=== PATIENT | female | born 1975 | race Caucasian/White ===

== ENCOUNTER 2016-08-20 08:19 | Day surgery (SDC) | payer MEDICAID ==
[2016-08-19 10:18] VITALS: BMI 21.1
[~2016-08-20 08:19] MED LIST: LACTATED RINGERS 1,000 ML IV SCH
[2016-08-20 09:33] VITALS: RESP 16; TEMP 97.1
[2016-08-20] MEDS ORDERED: LIDOCAINE 1% INJ 10MG/ML (20 ML MDV) ONE (09:37)
[2016-08-20] MEDS ORDERED: GLYCOPYRROLATE 0.2 MG/ML 2 ML VIAL ONE (09:37)
[2016-08-20] MEDS ORDERED: PROPOFOL 10 MG/ML 20 ML VIAL IV ONE (09:37)
--- NOTE | 2016-08-20 09:57 | P.PCN ---
Date of Procedure: 08/20/16 Procedure(s) Performed: BRIEF HISTORY: Patient is a 40-year-old pleasant white female, scheduled for an elective colonoscopy as a part of evaluation of abdominal pain, intermittent diarrhea and prior history of colon polyps. She had a colonoscopy about 8 years ago and was noted to have a repeat colonoscopy in 5 years. PROCEDURE PERFORMED: Colonoscopy. PREOPERATIVE DIAGNOSIS: History of colon polyps, intermittent abdominal pain and diarrhea. IV sedation per Anesthesia. PROCEDURE: After informed consent was obtained, the patient, was brought into the endoscopy unit. IV conscious sedation was administered by Anesthesia under continuous monitoring. Digital rectal examination was normal. Initially the Olympus CF-160 flexible video colonoscope was then inserted in the rectum, gradually advanced into the cecum without any difficulty. Careful examination was performed as the scope was gradually being withdrawn. Ileocecal valve and the appendiceal orifice were visualized and appeared normal. Prep was excellent. Mucosa of the cecum, ascending colon, transverse colon, descending colon, sigmoid colon, and rectum appeared normal. Retroflexion was performed in the rectum and no lesions were seen. The patient tolerated the procedure well. IMPRESSION: Normal-appearing colon from rectum to cecum with no evidence of colitis or colorectal neoplasia. RECOMMENDATIONS: Findings of this examination were discussed with the patient as well as a family. She was advised to have a repeat screening colonoscopy in 10 years.
[2016-08-20 10:23] VITALS: BP 103/66; PULSE 88
== END 2016-08-20 10:51 | disposition home or self-care (01) ==
LOC: ORWHC2ENDO 08:19
PROVIDERS: ATTEND Internal Medicine Gastroenterology
DX: R19.7 Diarrhea, unspecified (principal); Z86.010 Personal history of colon polyps; R10.9 Unspecified abdominal pain; Z79.899 Other long term (current) drug therapy; Z88.2 Allergy status to sulfonamides
CPT/HCPCS: 81025; 45378; J2001; J2704

== ENCOUNTER → 2017-06-22 | Outpatient (CLI) | payer MEDICAID ==
--- NOTE | 2017-06-22 13:35 | US ---
EXAMINATION TYPE: US pelvis complete transvag DATE OF EXAM: 06/22/2017 COMPARISON: Pelvic ultrasound 08/20/2015 CLINICAL HISTORY: R10.2 Pelvic pain. RLQ ache that comes and goes for a while, h/o ovarian cysts TECHNIQUE: TA and TV, endovaginal scanning performed for better evaluation of the uterus and adnexa Date of LMP: 06/14/2017 EXAM MEASUREMENTS: Uterus: 8.0 x 5.1 x 4.6 cm Endometrial Stripe: 0.8 cm Right Ovary: 2.8 x 2.4 x 1.5 cm Left Ovary: 2.0 x 0.9 x 1.0 cm 1. Uterus: Retroverted wnl 2. Endometrium: wnl 3. Right Ovary: multiple anechoic areas seen, largest = 1.4cm, dominate follicle versus involuting c yst 4. Left Ovary: wnl 5. Bilateral Adnexa: free fluid seen within bilateral adnexa, greater amount on the left 6. Posterior cul-de-sac: wnl IMPRESSION: Free fluid is noted in the adnexal regions greater on the left, there is a noted follicle on the right
== END | disposition home or self-care (01) ==
LOC: RADUSWWP 12:05
PROVIDERS: ATTEND Obstetrics & Gynecology
DX: R93.8 Abnormal findings on diagnostic imaging of other specified body structures (principal); R10.2 Pelvic and perineal pain
CPT/HCPCS: 76830; 76856

== ENCOUNTER → 2017-07-28 | Outpatient (CLI) | payer MEDICAID ==
--- NOTE | 2017-08-02 07:03 | MM ---
Reason for exam: screening (asymptomatic). Last mammogram was performed 1 year and 1 month ago. Physical Findings: A clinical breast exam by your physician is recommended on an annual basis and results should be correlated with mammographic findings. MG 3D Screening Mammo W/Cad Bilateral CC and MLO view(s) were taken. Prior study comparison: July 05, 2016, bilateral MG 3d screening mammo w/cad. The breast tissue is extremely dense which could obscure a lesion on mammography. Finding: There is a high density, indistinct oval mass in the posterior position of the right breast in the MLO position. New finding since July 05, 2016. ASSESSMENT: Incomplete: need additional imaging evaluation, BI-RAD 0 RECOMMENDATION: Special view mammogram of the right breast. If lesion persists on supplemental views, image directed ultrasound is recommended. [facility] will attempt to contact patient to return for supplemental views and ultrasound if indicated.
== END | disposition home or self-care (01) ==
LOC: RADMAMWWP 15:03
PROVIDERS: ATTEND Obstetrics & Gynecology
DX: Z12.31 Encounter for screening mammogram for malignant neoplasm of breast (principal)
CPT/HCPCS: 77063; G0202

== ENCOUNTER 2017-08-26 22:28 | Emergency (ER) | payer MEDICAID ==
[2017-08-26 22:35] VITALS: RESP 18
[2017-08-26] MEDS ORDERED: LORazepam 1 MG TAB PO STA (22:45)
--- NOTE | 2017-08-26 22:48 | ED ---
General Adult HPI - General Chief complaint: Shortness of Breath Stated complaint: Anxiety Time Seen by Provider: 08/26/17 22:30 Source: EMS, RN notes reviewed Mode of arrival: EMS Limitations: no limitations - History of Present Illness Initial comments: This is a 41-year-old female has past medical history significant for some mild anxiety. Patient states tonight she suddenly felt as though she couldn't catch her breath and she began to breathing real fast and noticed tingling all over her body and felt as though she could no longer move her hands. Patient states she had a little sharp left-sided chest pain and because she's in her she started worrying that she might be having a pulmonary embolism. Patient states earlier in the day she remembers she had some calf pain occasionally currently has no calf pain. Patient denies any leg swelling or any pain on palpation. Patient denies any fever chills or cough. Patient denies any abdominal pain. Patient denies nausea vomiting diarrhea. Patient states she did look at her pulse when this was occurring and she believes it was up to about 150 beats a minute. Patient denies any control patient denies any traveling or long trips. Patient denies any smoking history - Related Data Home Medications Medication Instructions Recorded Confirmed Clobetasol Propionate [Temovate] 1 applic TOPICAL DAILY PRN 08/19/16 08/26/17 cycloSPORINE [Restasis] 1 applicator BOTH EYES BID 08/26/17 08/26/17 Previous Rx's Medication Instructions Recorded ALPRAZolam [Xanax] 0.5 mg PO BID PRN #10 tablet 08/27/17 Allergies Allergy/AdvReac Type Severity Reaction Status Date / Time Sulfa (Sulfonamide Allergy Rash/Hives Verified 08/26/17 22:55 Antibiotics) Review of Systems ROS Statement: Those systems with pertinent positive or pertinent negative responses have been documented in the HPI. ROS Other: All systems not noted in ROS Statement are negative. Past Medical History Past Medical History: GERD/Reflux Additional Past Medical History / Comment(s): IBS History of Any Multi-Drug Resistant Organisms: None Reported Additional Past Surgical History / Comment(s): D&C, COLONOSCOPY Past Anesthesia/Blood Transfusion Reactions: Postoperative Nausea & Vomiting ( PONV) Past Psychological History: Anxiety Smoking Status: Never smoker Past Alcohol Use History: Occasional Past Drug Use History: None Reported - Past Family History Father Family Medical History: Cancer Additional Family Medical History / Comment(s): THROAT AND LUNG CANCER General Exam - General Exam Comments Initial Comments: GENERAL: Patient is well-developed and well-nourished. Patient is nontoxic and well- hydrated and is in mild distress. ENT: Neck is soft and supple. No significant lymphadenopathy is noted. Oropharynx is clear. Moist mucous membranes. Neck has full range of motion without eliciting any pain. EYES: The sclera were anicteric and conjunctiva were pink and moist. Extraocular movements were intact and pupils were equal round and reactive to light. Eyelids were unremarkable. PULMONARY: Unlabored respirations. Good breath sounds bilaterally. No audible rales rhonchi or wheezing was noted. CARDIOVASCULAR: There is a regular rate and rhythm without any murmurs gallops or rubs. ABDOMEN: Soft and nontender with normal bowel sounds. No palpable organomegaly was noted. SKIN: Skin is clear with no lesions or rashes and otherwise unremarkable. NEUROLOGIC: Patient is alert and oriented x3. Cranial nerves II through XII are grossly intact. Motor and sensory are also intact. Normal speech, volume and content. Symmetrical smile. MUSCULOSKELETAL: Normal extremities with adequate strength and full range of motion. LYMPHATICS: No significant lymphadenopathy is noted PSYCHIATRIC: Normal psychiatric evaluation. Normal interpersonal interactions appears functionally intact in deals appropriately with others. No signs of depression. No signs of anxiety. Limitations: no limitations Course Vital Signs 08/26/17 08/26/17 22:31 23:23 Temperature 97.7 F Pulse Rate 95 96 Respiratory 18 18 Rate Blood Pressure 125/58 121/65 O2 Sat by Pulse 100 99 Oximetry Medical Decision Making - Medical Decision Making EKG shows sinus rhythm at 93 bpm DE interval is 224 QRS is 66 QT interval 346 QTC is 4:30. Patient's EKG shows no ST segment elevation or depression or T wave abnormalities are noted. Patient does have Q waves in V1 through the 3. Patient is asymptomatic at this time. Patient is oxygenating 99-100% on room air and in no respiratory distress. - Lab Data Result diagrams: 08/26/17 23:20 08/26/17 23:20 Lab Results 08/26/17 08/26/17 08/26/17 Range/Units 23:20 23:20 23:20 WBC 7.4 (3.8-10.6) k/uL RBC 5.26 (3.80-5.40) m/uL Hgb 15.0 (11.4-16.0) gm/dL Hct 43.7 (34.0-46.0) % MCV 83.1 (80.0-100.0) fL MCH 28.5 (25.0-35.0) pg MCHC 34.3 (31.0-37.0) g/dL RDW 15.1 (11.5-15.5) % Plt Count 234 (150-450) k/uL Neutrophils % 66 % Lymphocytes % 22 % Monocytes % 8 % Eosinophils % 1 % Basophils % 1 % Neutrophils # 4.9 (1.3-7.7) k/uL Lymphocytes # 1.7 (1.0-4.8) k/uL Monocytes # 0.6 (0-1.0) k/uL Eosinophils # 0.1 (0-0.7) k/uL Basophils # 0.0 (0-0.2) k/uL D-Dimer (<0.60) mg/L FEU Sodium 142 (137-145) mmol/L Potassium 3.7 (3.5-5.1) mmol/L Chloride 106 (98-107) mmol/L Carbon Dioxide 26 (22-30) mmol/L Anion Gap 10 mmol/L BUN 13 (7-17) mg/dL Creatinine 0.70 (0.52-1.04) mg/dL Est GFR (MDRD) Af Amer >60 (>60 ml/min/1.73 sqM) Est GFR (MDRD) Non-Af >60 (>60 ml/min/1.73 sqM) Glucose 115 H (74-99) mg/dL Calcium 10.4 H (8.4-10.2) mg/dL Total Bilirubin 0.4 (0.2-1.3) mg/dL AST 21 (14-36) U/L ALT 26 (9-52) U/L Alkaline Phosphatase 63 (38-126) U/L Total Creatine Kinase 25 L (30-135) U/L CK-MB (CK-2) <0.2 (0.0-2.4) ng/mL CK-MB (CK-2) Rel Index Troponin I <0.012 (0.000-0.034) ng/mL Total Protein 7.2 (6.3-8.2) g/dL Albumin 4.4 (3.5-5.0) g/dL 08/26/17 Range/Units 23:20 WBC (3.8-10.6) k/uL RBC (3.80-5.40) m/uL Hgb (11.4-16.0) gm/dL Hct (34.0-46.0) % MCV (80.0-100.0) fL MCH (25.0-35.0) pg MCHC (31.0-37.0) g/dL RDW (11.5-15.5) % Plt Count (150-450) k/uL Neutrophils % % Lymphocytes % % Monocytes % % Eosinophils % % Basophils % % Neutrophils # (1.3-7.7) k/uL Lymphocytes # (1.0-4.8) k/uL Monocytes # (0-1.0) k/uL Eosinophils # (0-0.7) k/uL Basophils # (0-0.2) k/uL D-Dimer 0.23 (<0.60) mg/L FEU Sodium (137-145) mmol/L Potassium (3.5-5.1) mmol/L Chloride (98-107) mmol/L Carbon Dioxide (22-30) mmol/L Anion Gap mmol/L BUN (7-17) mg/dL Creatinine (0.52-1.04) mg/dL Est GFR (MDRD) Af Amer (>60 ml/min/1.73 sqM) Est GFR (MDRD) Non-Af (>60 ml/min/1.73 sqM) Glucose (74-99) mg/dL Calcium (8.4-10.2) mg/dL Total Bilirubin (0.2-1.3) mg/dL AST (14-36) U/L ALT (9-52) U/L Alkaline Phosphatase (38-126) U/L Total Creatine Kinase (30-135) U/L CK-MB (CK-2) (0.0-2.4) ng/mL CK-MB (CK-2) Rel Index Troponin I (0.000-0.034) ng/mL Total Protein (6.3-8.2) g/dL Albumin (3.5-5.0) g/dL Disposition Clinical Impression: Panic attack Disposition: HOME SELF-CARE Condition: Good Instructions: Panic Attack (ED) Prescriptions: ALPRAZolam [Xanax] 0.5 mg PO BID PRN #10 tablet PRN Reason: Anxiety Referrals: Malick Noyola III, MD [Primary Care Provider] - 1-2 days Time of Disposition: 00:27
[2017-08-26 23:24] VITALS: BP 121/65; PULSE 96
[2017-08-26 23:32] LABS: Basophils % (A) 1 %; Eosinophils # (A) 0.1 k/uL (0-0.7); Eosinophils % (A) 1 %; HCT 43.7 % (34.0-46.0); Lymphocytes # (A) 1.7 k/uL (1.0-4.8); Lymphocytes % (A) 22 %; MCH 28.5 pg (25.0-35.0); MCHC 34.3 g/dL (31.0-37.0); MCV 83.1 fL (80.0-100.0); Mean Platelet Volume 7.6; Monocytes # (A) 0.6 k/uL (0-1.0); Monocytes % (A) 8 %; Neutrophils # (A) 4.9 k/uL (1.3-7.7); Neutrophils % (A) 66 %; Platelet Count 234 k/uL (150-450); RBC 5.26 m/uL (3.80-5.40); RDW 15.1 % (11.5-15.5); WBC 7.4 k/uL (3.8-10.6)
[2017-08-26 23:47] LABS: ALT 26 U/L (9-52); AST 21 U/L (14-36); Albumin 4.4 g/dL (3.5-5.0); Alkaline Phosphatase 63 U/L (38-126); Anion Gap 10 mmol/L; Blood Urea Nitrogen 13 mg/dL (7-17); Calcium 10.4 mg/dL (8.4-10.2); Carbon Dioxide 26 mmol/L (22-30); Chloride 106 mmol/L (98-107); Glucose 115 mg/dL (74-99); Potassium 3.7 mmol/L (3.5-5.1); Sodium 142 mmol/L (137-145); Total Bilirubin 0.4 mg/dL (0.2-1.3); Total Protein 7.2 g/dL (6.3-8.2)
[2017-08-26 23:53] LABS: Creatine Kinase 25 U/L (30-135)
--- NOTE | 2017-08-26 23:53 | XR ---
EXAMINATION TYPE: XR chest 2V DATE OF EXAM: 08/26/2017 COMPARISON: NONE HISTORY: Difficulty breathing TECHNIQUE: Frontal and lateral views of the chest are obtained. FINDINGS: Heart and mediastinum are normal. Lungs are clear. Diaphragm is normal. Bony thorax is int act. There are chest leads. IMPRESSION: Normal chest
[2017-08-27 00:06] LABS: Creatine Kinase MB <0.2 ng/mL (0.0-2.4); Troponin I <0.012 ng/mL (0.000-0.034)
[2017-08-27 00:35] VITALS: TEMP 97.8
== END 2017-08-27 00:35 | disposition home or self-care (01) ==
LOC: EC 22:28
DX: F41.0 Panic disorder [episodic paroxysmal anxiety] (principal); R06.02 Shortness of breath; R07.9 Chest pain, unspecified; Z79.899 Other long term (current) drug therapy; Z88.2 Allergy status to sulfonamides
CPT/HCPCS: 36415; 71046; 80053; 82550; 82553; 84484; 85025; 85379; 93005; 99285

== ENCOUNTER → 2017-08-29 | Outpatient (CLI) | payer MEDICAID ==
--- NOTE | 2017-08-29 15:24 | CT ---
EXAMINATION TYPE: CT angio chest DATE OF EXAM: 08/29/2017 COMPARISON: NONE HISTORY: 41-year-old female SOB x4 days. Tachycardia. TECHNIQUE: Contiguous axial scanning of the chest performed with IV Contrast, patient injected with 8 0 mL of Omnipaque 350. Coronal/sagittal MIP reconstructions performed. CT DLP: 128.7 mGycm Automated exposure control for dose reduction was used. FINDINGS: Heart is normal size without pericardial effusion. Aorta normal caliber with bowing configuration to the aortic arch. Satisfactory opacification of the pulmonary arterial system with a some respiratory motion artifact e specially in the lower lungs but no evidence for pulmonary embolus. No thoracic lymphadenopathy. Evaluation of the lungs shows no consolidation or pleural effusion. Visualized upper abdomen shows surgical 7 mm nodularity of the left adrenal gland. Tiny underlying ad renal adenoma is possible. Bones: No osseous destructive process. IMPRESSION: 1. SOME MILD RESPIRATORY MOTION ARTIFACTS. NO EVIDENCE FOR PULMONARY EMBOLUS. 2. NO ACUTE PULMONARY PROCESS. 3. POSSIBLE TINY 7 MM LEFT ADRENAL ADENOMA.
== END | disposition home or self-care (01) ==
LOC: RADCTMAIN 14:50
PROVIDERS: ATTEND Family Medicine
DX: R00.0 Tachycardia, unspecified (principal); R06.02 Shortness of breath
CPT/HCPCS: 71275; Q9967

== ENCOUNTER → 2017-08-30 | Outpatient (CLI) | payer MEDICAID ==
--- NOTE | 2017-08-30 13:08 | US ---
EXAMINATION TYPE: US venous doppler duplex LE LT DATE OF EXAM: 08/30/2017 12:52 PM COMPARISON: NONE CLINICAL HISTORY: Left Lower Ext, M79.605 pain. SIDE PERFORMED: Left TECHNIQUE: The lower extremity deep venous system is examined utilizing real time linear array sonog anjelica with graded compression, doppler sonography and color-flow sonography. VESSELS IMAGED: External Iliac Vein (EIV) Common Femoral Vein Deep Femoral Vein Greater Saphenous Vein * Femoral Vein Popliteal Vein Proximal Calf Veins (* superficial vessels) Grayscale, color doppler, spectral doppler imaging performed of the deep veins of the lower extremity . There is normal flow, compressibility, vascular waveforms. IMPRESSION: Left Leg: Negative for DVT
== END | disposition home or self-care (01) ==
LOC: RADUSWWP 12:07
PROVIDERS: ATTEND Family Medicine
DX: I83.10 Varicose veins of unspecified lower extremity with inflammation (principal)

== ENCOUNTER 2017-09-09 23:02 | Emergency (ER) | payer MEDICAID ==
[2017-09-10 00:20] VITALS: TEMP 97.7
--- NOTE | 2017-09-10 00:42 | ED ---
Arrhythmia/Palpitations HPI - General Chief Complaint: Arrhythmia/Palpitations Stated Complaint: SOB/Tachycardia Time Seen by Provider: 09/10/17 00:31 Source: patient, RN notes reviewed, old records reviewed Mode of arrival: ambulatory Limitations: no limitations - History of Present Illness Initial Comments: This is a 42-year-old female who presents with complaints of palpitations. She had 4 episodes today thus far lasting 15-30 seconds each last was in the waiting room prior to coming back to the treatment area. She feels somewhat anxious with this. She is currently being worked up for this. She had a stress test and echocardiogram done today. She currently has a Holter monitor on. She denies any fevers chills nausea times sweats. She did have some hot flash type sensation with the episodes. She is not going through menopause as far she knows at this time. She did have some lab work done 2 days ago by her doctor. She was seen here 2 weeks ago with palpitations and shortness of breath this with the workup apparently began. MD Complaint: rapid heart beat, "heart racing" - Related Data Home Medications Medication Instructions Recorded Confirmed Clobetasol Propionate [Temovate] 1 applic TOPICAL DAILY PRN 08/19/16 08/26/17 cycloSPORINE [Restasis] 1 applicator BOTH EYES BID 08/26/17 08/26/17 Previous Rx's Medication Instructions Recorded ALPRAZolam [Xanax] 0.5 mg PO BID PRN #10 tablet 08/27/17 Allergies Allergy/AdvReac Type Severity Reaction Status Date / Time Sulfa (Sulfonamide Allergy Rash/Hives Verified 09/10/17 00:20 Antibiotics) Review of Systems ROS Statement: Those systems with pertinent positive or pertinent negative responses have been documented in the HPI. ROS Other: All systems not noted in ROS Statement are negative. Past Medical History Past Medical History: GERD/Reflux Additional Past Medical History / Comment(s): IBS, adrenal adenoma, psoriasis, dry eyes History of Any Multi-Drug Resistant Organisms: None Reported Additional Past Surgical History / Comment(s): D&C, COLONOSCOPY Past Anesthesia/Blood Transfusion Reactions: Postoperative Nausea & Vomiting ( PONV) Past Psychological History: Anxiety Smoking Status: Never smoker Past Alcohol Use History: Occasional Past Drug Use History: None Reported - Past Family History Father Family Medical History: Cancer Additional Family Medical History / Comment(s): THROAT AND LUNG CANCER General Exam - General Exam Comments Initial Comments: This is a well-developed well-nourished awake alert oriented 3 female Limitations: no limitations General appearance: alert, anxious Head exam: Present: atraumatic, normocephalic, normal inspection Eye exam: Present: normal appearance, PERRL, EOMI. Absent: scleral icterus, conjunctival injection, periorbital swelling ENT exam: Present: normal exam, mucous membranes moist Neck exam: Present: normal inspection. Absent: tenderness, meningismus, lymphadenopathy Respiratory exam: Present: normal lung sounds bilaterally. Absent: respiratory distress, wheezes, rales, rhonchi, stridor Cardiovascular Exam: Present: regular rate, normal rhythm, normal heart sounds. Absent: systolic murmur, diastolic murmur, rubs, gallop, clicks GI/Abdominal exam: Present: soft, normal bowel sounds. Absent: distended, tenderness, guarding, rebound, rigid Extremities exam: Present: normal inspection, full ROM, normal capillary refill. Absent: tenderness, pedal edema, joint swelling, calf tenderness Back exam: Present: normal inspection Neurological exam: Present: alert, oriented X3, CN II-XII intact Psychiatric exam: Present: normal affect, normal mood Skin exam: Present: warm, dry, intact, normal color. Absent: rash Course Vital Signs 09/10/17 00:15 Temperature 97.7 F Pulse Rate 82 Respiratory 22 Rate Blood Pressure 123/65 O2 Sat by Pulse 100 Oximetry EKG Findings - EKG Results: EKG: interpreted by ERMD, sinus rhythm (Sinus rhythm rate is 75. Interval to 12 QRS duration 72 QT since QTC 370/422 minutes of a first degree AV block some questionable delta wave formation noted. EKG is compared with one dated 08/26/17 ) Medical Decision Making - Medical Decision Making I did discuss findings with patient and her family. Patient be discharged she is keep her follow-up with cardiology when necessary - Lab Data Result diagrams: 09/10/17 00:57 09/10/17 00:57 Lab Results 09/10/17 09/10/17 09/10/17 Range/Units 00:57 00:57 00:57 WBC 8.2 (3.8-10.6) k/uL RBC 4.98 (3.80-5.40) m/uL Hgb 14.5 (11.4-16.0) gm/dL Hct 42.4 (34.0-46.0) % MCV 85.0 (80.0-100.0) fL MCH 29.0 (25.0-35.0) pg MCHC 34.1 (31.0-37.0) g/dL RDW 14.4 (11.5-15.5) % Plt Count 255 (150-450) k/uL Neutrophils % 82 % Lymphocytes % 11 % Monocytes % 5 % Eosinophils % 1 % Basophils % 1 % Neutrophils # 6.7 (1.3-7.7) k/uL Lymphocytes # 0.9 L (1.0-4.8) k/uL Monocytes # 0.4 (0-1.0) k/uL Eosinophils # 0.1 (0-0.7) k/uL Basophils # 0.0 (0-0.2) k/uL PT (9.0-12.0) sec INR (<1.2) APTT (22.0-30.0) sec D-Dimer (<0.60) mg/L FEU Sodium 142 (137-145) mmol/L Potassium 4.3 (3.5-5.1) mmol/L Chloride 107 (98-107) mmol/L Carbon Dioxide 25 (22-30) mmol/L Anion Gap 10 mmol/L BUN 13 (7-17) mg/dL Creatinine 0.70 (0.52-1.04) mg/dL Est GFR (MDRD) Af Amer >60 (>60 ml/min/1.73 sqM) Est GFR (MDRD) Non-Af >60 (>60 ml/min/1.73 sqM) Glucose 91 (74-99) mg/dL Calcium 9.8 (8.4-10.2) mg/dL Magnesium 2.2 (1.6-2.3) mg/dL Total Bilirubin 0.2 (0.2-1.3) mg/dL AST 18 (14-36) U/L ALT 20 (9-52) U/L Alkaline Phosphatase 66 (38-126) U/L Total Creatine Kinase 25 L (30-135) U/L CK-MB (CK-2) 0.2 (0.0-2.4) ng/mL CK-MB (CK-2) Rel Index 0.8 Troponin I <0.012 (0.000-0.034) ng/mL Total Protein 6.9 (6.3-8.2) g/dL Albumin 4.3 (3.5-5.0) g/dL TSH 4.190 (0.465-4.680) mIU/L 09/10/17 Range/Units 00:57 WBC (3.8-10.6) k/uL RBC (3.80-5.40) m/uL Hgb (11.4-16.0) gm/dL Hct (34.0-46.0) % MCV (80.0-100.0) fL MCH (25.0-35.0) pg MCHC (31.0-37.0) g/dL RDW (11.5-15.5) % Plt Count (150-450) k/uL Neutrophils % % Lymphocytes % % Monocytes % % Eosinophils % % Basophils % % Neutrophils # (1.3-7.7) k/uL Lymphocytes # (1.0-4.8) k/uL Monocytes # (0-1.0) k/uL Eosinophils # (0-0.7) k/uL Basophils # (0-0.2) k/uL PT 10.7 (9.0-12.0) sec INR 1.1 (<1.2) APTT 22.7 (22.0-30.0) sec D-Dimer <0.17 (<0.60) mg/L FEU Sodium (137-145) mmol/L Potassium (3.5-5.1) mmol/L Chloride (98-107) mmol/L Carbon Dioxide (22-30) mmol/L Anion Gap mmol/L BUN (7-17) mg/dL Creatinine (0.52-1.04) mg/dL Est GFR (MDRD) Af Amer (>60 ml/min/1.73 sqM) Est GFR (MDRD) Non-Af (>60 ml/min/1.73 sqM) Glucose (74-99) mg/dL Calcium (8.4-10.2) mg/dL Magnesium (1.6-2.3) mg/dL Total Bilirubin (0.2-1.3) mg/dL AST (14-36) U/L ALT (9-52) U/L Alkaline Phosphatase (38-126) U/L Total Creatine Kinase (30-135) U/L CK-MB (CK-2) (0.0-2.4) ng/mL CK-MB (CK-2) Rel Index Troponin I (0.000-0.034) ng/mL Total Protein (6.3-8.2) g/dL Albumin (3.5-5.0) g/dL TSH (0.465-4.680) mIU/L Disposition Clinical Impression: Palpitations Disposition: HOME SELF-CARE Condition: Good Instructions: Palpitations (ED) Referrals: Malick Noyola III, MD [Primary Care Provider] - 1-2 days
[2017-09-10 01:08] LABS: Basophils % (A) 1 %; Eosinophils # (A) 0.1 k/uL (0-0.7); Eosinophils % (A) 1 %; HCT 42.4 % (34.0-46.0); HGB 14.5 gm/dL (11.4-16.0); Lymphocytes # (A) 0.9 k/uL (1.0-4.8); Lymphocytes % (A) 11 %; MCHC 34.1 g/dL (31.0-37.0); Mean Platelet Volume 7.5; Monocytes # (A) 0.4 k/uL (0-1.0); Monocytes % (A) 5 %; Neutrophils # (A) 6.7 k/uL (1.3-7.7); Neutrophils % (A) 82 %; Platelet Count 255 k/uL (150-450); RBC 4.98 m/uL (3.80-5.40); RDW 14.4 % (11.5-15.5); WBC 8.2 k/uL (3.8-10.6)
[2017-09-10 01:25] LABS: ALT 20 U/L (9-52); AST 18 U/L (14-36); Albumin 4.3 g/dL (3.5-5.0); Alkaline Phosphatase 66 U/L (38-126); Anion Gap 10 mmol/L; Blood Urea Nitrogen 13 mg/dL (7-17); Calcium 9.8 mg/dL (8.4-10.2); Carbon Dioxide 25 mmol/L (22-30); Chloride 107 mmol/L (98-107); Glucose 91 mg/dL (74-99); Magnesium 2.2 mg/dL (1.6-2.3); Potassium 4.3 mmol/L (3.5-5.1); Sodium 142 mmol/L (137-145); Total Bilirubin 0.2 mg/dL (0.2-1.3); Total Protein 6.9 g/dL (6.3-8.2)
[2017-09-10 01:26] LABS: D-Dimer <0.17 mg/L FEU (<0.60); INR 1.1 (<1.2); Partial Thromboplastin Time 22.7 sec (22.0-30.0); Prothrombin Time 10.7 sec (9.0-12.0)
[2017-09-10 01:28] LABS: Creatine Kinase 25 U/L (30-135)
[2017-09-10 01:41] LABS: Creatine Kinase MB 0.2 ng/mL (0.0-2.4); Troponin I <0.012 ng/mL (0.000-0.034)
[2017-09-10 02:22] VITALS: BP 116/65; PULSE 80; RESP 16
== END 2017-09-10 02:25 | disposition home or self-care (01) ==
LOC: EC 23:02
DX: R00.2 Palpitations (principal); Z79.899 Other long term (current) drug therapy; Z88.2 Allergy status to sulfonamides; Z86.69 Personal history of other diseases of the nervous system and sense organs
CPT/HCPCS: 36415; 80053; 82550; 82553; 83735; 84443; 84484; 85025; 85379; 85610; 85730; 93005; 99285

== ENCOUNTER → 2017-09-09 | Outpatient (CLI) | payer MEDICAID ==
--- NOTE | 2017-09-09 13:09 | EST ---
EXERCISE STRESS DATE OF SERVICE: 09/09/2017 AGE: 42 SEX: Female HT: 67" WT: 138 pounds PROTOCOL: FABBY STAGE: IV DURATION OF EXERCISE: 12 minutes HEART RATE REST: 69 BLOOD PRESSURE REST: 109/77 MAXIMUM HEART RATE ACHIEVED: 160 MAXIMUM BLOOD PRESSURE: 176/53 85% MPHR: 152 100% MPHR: 179 METS: 12.3 INDICATIONS: Chest pain. CLINICAL INFORMATION: STRESS DATA: Pretesting physical examination showed a heart rate of 69, pressure is 109/77 mmHg. Baseline EKG showed sinus rhythm. The patient exercised on the treadmill according to Fabby protocol for a total of 12 minutes and achieved 12.3 METs. The max heart rate was 160, which is about 89% of maximum predicted heart rate. Maximum blood pressure was 176/53 mmHg. Clinically the patient did not have any symptoms of chest pain or discomfort during the testing or in the recovery and the EKG did not show any significant ST or T-wave abnormalities consistent with ischemia. CONCLUSION: 1. Excellent exercise capacity. 2. The patient did not have any symptoms in response to exercise. 3. No significant ST or T-wave abnormalities in response to exercise as well. 4. Essentially normal stress test for the patient. MMODL / IJN: [id number] /
--- NOTE | 2017-09-10 08:10 | ECHOF ---
Referral Reason:R00.2 Palpitations,R06.02 SOB,I49.3 PVC MEASUREMENTS -------- HEIGHT: 170.2 cm WEIGHT: 62.6 kg BP: 109/77 RVIDd: 2.8 cm (< 3.3) IVSd: 1.1 cm (0.6 - 1.1) LVIDd: 3.0 cm (3.9 - 5.3) LVPWd: 0.9 cm (0.6 - 1.1) IVSs: 1.4 cm LVIDs: 2.1 cm LVPWs: 1.5 cm LA Diam: 2.7 cm (2.7 - 3.8) LAESV Index (A-L): 17.08 ml/m Ao Diam: 2.6 cm (2.0 - 3.7) AV Cusp: 2.1 cm (1.5 - 2.6) MV EXCURSION: 20.824 mm (> 18.000) MV EF SLOPE: 153 mm/s (70 - 150) EPSS: 0.2 cm MV E Shay: 0.76 m/s MV DecT: 213 ms MV A Shay: 0.67 m/s MV E/A Ratio: 1.13 RAP: 5.00 mmHg RVSP: 32.30 mmHg FINDINGS -------- Sinus rhythm. This was a technically good study. The left ventricular size is normal. Left ventricular wall thickness is normal. Overall left vent ricular systolic function is normal with, an EF between 55 - 60 %. The right ventricle is normal in size. Normal LA size by volume 22+/-6 ml/m2. The right atrium is normal in size. The aortic valve is trileaflet and appears structurally normal. There is trace mitral regurgitation. Mild tricuspid regurgitation present. Right ventricular systolic pressure is normal at < 35 mmHg. The right ventricular systolic pressure, as measured by Doppler, is 32.30mmHg. The pulmonic valve was not well visualized. The aortic root size is normal. Normal inferior vena cava with normal inspiratory collapse consistent with estimated right atrial pre ssure of 5 mmHg. There is no pericardial effusion. CONCLUSIONS -------- 1. Sinus rhythm. 2. This was a technically good study. 3. The left ventricular size is normal. 4. Left ventricular wall thickness is normal. 5. Overall left ventricular systolic function is normal with, an EF between 55 - 60 %. 6. The right ventricle is normal in size. 7. Normal LA size by volume 22+/-6 ml/m2. 8. The right atrium is normal in size. 9. The aortic valve is trileaflet and appears structurally normal. 10. There is trace mitral regurgitation. 11. Mild tricuspid regurgitation present. 12. Right ventricular systolic pressure is normal at < 35 mmHg. 13. The right ventricular systolic pressure, as measured by Doppler, is 32.30mmHg. 14. The pulmonic valve was not well visualized. 15. The aortic root size is normal. 16. Normal inferior vena cava with normal inspiratory collapse consistent with estimated right atrial pressure of 5 mmHg. 17. There is no pericardial effusion. HAT LINER: Shawnee Gao RDCS
--- NOTE | 2017-09-15 18:33 | HM ---
HOLTER MONITOR REPORT The patient was monitored for 24 hours. The baseline rhythm is a sinus mechanism with normal conduction. The average rate is 79 beats per minute, minimum of 50, maximum 141 beats per minute. Ventricular ectopic activity was present in the form of rare single PVCs. Supraventricular ectopic activity was present in the form of rare single PACs. Episodes of sinus tachycardia were noted. Symptoms of sudden heart rate racing, dizzy, lightheaded, sweaty did not correlate with any clear arrhythmia. CONCLUSION: 1. Sinus mechanism baseline rhythm with episodes of sinus tachycardia. 2. Rare ventricular ectopic activity. 3. Rare supraventricular ectopic activity. 4. Symptoms did not correlate with any arrhythmia. MMODL / IJN: [id number] /
== END | disposition home or self-care (01) ==
LOC: RADNMMAIN 11:06
PROVIDERS: ATTEND Internal Medicine Clinical Cardiac Electrophysiology
DX: I49.3 Ventricular premature depolarization (principal); I07.1 Rheumatic tricuspid insufficiency; R00.0 Tachycardia, unspecified
CPT/HCPCS: 93017; 93225; 93226; 93306

== ENCOUNTER → 2017-09-15 | Outpatient (CLI) | payer MEDICAID ==
[2017-09-15 13:19] LABS: T4, Free (Free Thyroxine) 1.21 ng/dL (0.78-2.19)
== END | disposition home or self-care (01) ==
LOC: LABWHC1 12:33
PROVIDERS: ATTEND Obstetrics & Gynecology
DX: F41.9 Anxiety disorder, unspecified (principal)
CPT/HCPCS: 36415; 84439; 84481; 86376

== ENCOUNTER → 2017-09-21 | Outpatient (CLI) | payer MEDICAID ==
[2017-09-21 16:46] LABS: Creatinine 24 Hour,Urine 1159.2 mg/24hr (800.0-1800.0)
[2017-09-23 06:18] LABS: Cortisol, Urine Free by LC-MS 8.7 ug/L; Free Cortisol 24 Hour,Urine 19.4 ug/day (<60.0)
[2017-09-26 13:48] LABS: Dopamine 24 Hr Urine 249 ug/day (65-400); Epinephrine 24 Hr Urine 9 ug/day (0-20); Metanephrines 24 Hour,Urine 56 ug/day (52-341); Norepinephrine 24 Hr Urine 20 ug/day (15-80); Normetanephrine 24 Hour,Urine 82 ug/day (88-444); Total Catecholamines Urine 29 ug/day (15-100); Total Metanephrines 24 Hour,Ur 138 ug/day (140-785); Urine Creatinine,24 Hr 1.3 gm/24h (0.8-1.8)
== END | disposition home or self-care (01) ==
LOC: LABWHC1 10:09
PROVIDERS: ATTEND Obstetrics & Gynecology
DX: E27.9 Disorder of adrenal gland, unspecified (principal)
CPT/HCPCS: 36415; 81050; 82088; 82384; 82530; 82570; 82626; 83835; 84244; 84300

== ENCOUNTER → 2017-09-30 | Outpatient (CLI) | payer MEDICAID ==
[2017-09-30 07:56] VITALS: BP 112/59; PULSE 62; RESP 16; TEMP 98.1
== END | disposition home or self-care (01) ==
LOC: PROCWHC3 07:24
PROVIDERS: ATTEND Obstetrics & Gynecology
DX: E27.9 Disorder of adrenal gland, unspecified (principal)
CPT/HCPCS: 36415; 82088; 82384; 82626; 83835; 84244

== ENCOUNTER → 2017-10-20 | Outpatient (CLI) | payer MEDICAID | END | disposition home or self-care (01) | LOC: LABWHC1 08:38 | PROVIDERS: ATTEND Internal Medicine | DX: E27.9 Disorder of adrenal gland, unspecified (principal) | CPT/HCPCS: 36415; 82533 ==

== ENCOUNTER → 2017-12-16 | Outpatient (CLI) | payer MEDICAID ==
--- NOTE | 2017-12-16 12:26 | XR ---
EXAMINATION TYPE: XR abdomen acute w cxr DATE OF EXAM: 12/16/2017 COMPARISON: NONE HISTORY: Pain TECHNIQUE: Single view of the chest and 2 views of the abdomen are submitted. FINDINGS: Single view of the chest fails demonstrate evidence for acute pulmonary disease. There is no evidence for pneumoperitoneum. The bowel gas pattern is unremarkable as there is air throughout nondilated small and large bowel. No sizeable air fluid levels.No mass effects are seen. No unusual calcifications. IMPRESSION: 1. Unremarkable study.
== END | disposition home or self-care (01) ==
LOC: RADXRMAIN 11:37
PROVIDERS: ATTEND Nurse Practitioner Family
DX: R10.12 Left upper quadrant pain (principal)
CPT/HCPCS: 74022

== ENCOUNTER → 2018-02-24 | Outpatient (CLI) | payer MEDICAID ==
--- NOTE | 2018-02-24 09:30 | US ---
EXAMINATION TYPE: US thyroid st tissue head/neck DATE OF EXAM: 02/24/2018 COMPARISON: CTA chest August 29, 2017 CLINICAL HISTORY: D35.00 Benign neoplasm of unspecified adrenal gland. Abnormal labs. Difficulty swa llowing. GLAND SIZE: Right Lobe: 4.4 x 1.6 x 1.1 cm Overall Parenchyma: homogenous Left Lobe: 4.3 x 1.3 x 1.0 cm Overall Parenchyma: homogeneous Isthmus Thickness: 0.2 cm NODULES RIGHT: # of nodules measured on right: 0 LEFT: # of nodules measured on left: 0 ISTHMUS: # of nodules measured in the isthmus: 0 Bilateral neck scanned, no evidence of lymphadenopathy. Visualized thyroid gland is slightly small in size and slightly heterogeneous in appearance without d iscrete nodule identified IMPRESSION: Somewhat small thyroid without discrete nodule.
--- NOTE | 2018-02-24 09:48 | CT ---
EXAMINATION TYPE: CT adrenal glands wo/w con DATE OF EXAM: 02/24/2018 COMPARISON: 08/29/2017 HISTORY: Folllow up to benign neoplasm of adrenal gland CT DLP: 393.3 mGycm Automated exposure control for dose reduction was used. CONTRAST: Performed without and with IV Contrast, patient injected with 100 mL of Isovue 300. FINDINGS: LUNG BASES: No significant abnormality is appreciated. LIVER/GB: No significant abnormality is appreciated. No cholelithiasis or evidence of hepatic steatos is. No focal hepatic lesion or intrahepatic biliary ductal dilatation. PANCREAS: No significant abnormality is seen. No ductal dilatation. SPLEEN: No splenomegaly ADRENALS: Both adrenal glands enhance homogeneously throughout. There is no focal nodule identified. No hyperintensity and T1 to suggest hemorrhage or hypointensity to suggest lipid rich adenoma or myel olipoma. KIDNEYS: There is a 7 mm left renal lesion that is too small to accurately characterize, however this measures fluid attenuation on the precontrast images and near fluid attenuation on the postcontrast images favored to represent a benign cyst. Remainder the kidneys enhance and excrete homogeneously. N o nephrolithiasis on the unenhanced images. BOWEL: No dilated large or small bowel is identified. LYMPH NODES: No greater than 1cm abdominal or pelvic lymph nodes are appreciated. OSSEOUS STRUCTURES: No significant abnormality is seen. IMPRESSION: 1. No suspicious adrenal gland lesion. No focal lesion is identified. The adrenal glands enhance homo geneously without evidence of adrenal gland hyperplasia, focal nodule or adrenal gland hemorrhage. 2. Left renal lesion that is too small to accurately characterize but highly favored to represent a b enign left renal cyst.
== END | disposition home or self-care (01) ==
LOC: RADUSMAIN 08:17
PROVIDERS: ATTEND Family Medicine
DX: D35.00 Benign neoplasm of unspecified adrenal gland (principal); N28.9 Disorder of kidney and ureter, unspecified; R94.6 Abnormal results of thyroid function studies
CPT/HCPCS: 76536; 74170; Q9967

== ENCOUNTER → 2018-03-08 | Outpatient (CLI) | payer MEDICAID ==
--- NOTE | 2018-03-08 15:51 | USB ---
Reason for exam: clinical finding. Physical Findings: Nurse Summary: 0.5-1cm palpable felt x 2 (nurse kp). US Breast RT Right complete breast ultrasound includes all four quadrants, the retroareolar region and axilla. Finding demonstrates a 0.7 x 0.8 x 0.3cm oval, cystic lesion at 12 o'clock appears benign, a 0.4 x 0.3 x 0.2cm oval, cystic lesion at 12 o'clock appears benign, a 0.4 x 0.4 x 0.2cm oval, cystic lesion at 12 o'clock margins are slightly irregular although smaller than prior, probably benign, a 1.1 x 0.8 x 0.3cm oval, cystic lesion at 1 o'clock similar to prior, duct ectasia t 6 o'clock, a 0.8 x 0.9 x 0.3cm oval, cystic cluster at 11 o'clock appears benign and a 1.2 x 2.8 x 0.5cm mixed lesion at 7 o'clock retroareolar, questionable ductal, mammogram will be performed. These results were verbally communicated with the patient and result sheet given to the patient on 03/08/18. ASSESSMENT: Incomplete: need additional imaging evaluation, BI-RAD 0 RECOMMENDATION: Follow-up diagnostic mammogram of the right breast.
--- NOTE | 2018-03-08 15:53 | MM ---
Reason for exam: additional evaluation requested from prior study. Last mammogram was performed 7 months ago. MG 3D Diag Mammo W/Cad RT CC and MLO view(s) were taken of the right breast. Prior study comparison: August 02, 2017, right breast MG work up mamm w CAD RT. July 28, 2017, bilateral MG 3d screening mammo w/cad. The breast tissue is heterogeneously dense. This may lower the sensitivity of mammography. A medial retroareolar asymmetry on mammogram is thought to correlate with the new sonographic finding and may represent a area of dense tissue. 6 month follow up ultrasound recommended. These results were verbally communicated with the patient and result sheet given to the patient on 03/08/18. ASSESSMENT: Probably benign, BI-RAD 3 RECOMMENDATION: Ultrasound of the right breast in 6 months. (follow up ultrasound at 12 o'clock and retroareolar)
== END | disposition home or self-care (01) ==
LOC: RADUSWWP 06:54
PROVIDERS: ATTEND Obstetrics & Gynecology
DX: R92.8 Other abnormal and inconclusive findings on diagnostic imaging of breast (principal)
CPT/HCPCS: 77061; 77065

== ENCOUNTER → 2018-03-09 | Outpatient (CLI) | payer MEDICAID ==
[2018-03-09 14:08] LABS: T4, Free (Free Thyroxine) 1.06 ng/dL (0.78-2.19)
== END | disposition home or self-care (01) ==
LOC: LABWHC1 12:40
PROVIDERS: ATTEND Nurse Practitioner Family
DX: R94.6 Abnormal results of thyroid function studies (principal)
CPT/HCPCS: 36415; 84439; 84443

== ENCOUNTER → 2018-09-04 | Outpatient (CLI) | payer MEDICAID ==
--- NOTE | 2018-09-04 14:50 | US ---
EXAMINATION TYPE: US pelvic complete DATE OF EXAM: 09/04/2018 COMPARISON: NONE CLINICAL HISTORY: N92.6 IRREGULAR MENSES. PELVIC PAIN TECHNIQUE: TA. Date of LMP: 08/27/2018 EXAM MEASUREMENTS: Uterus: 9.8 x 6.7 x 5.2 cm Endometrial Stripe: 1.0 cm Right Ovary: 2.8 x 1.5 x 1.6 cm Left Ovary: 3.3 x 2.8 x 2.3 cm 1. Uterus: Retroverted wnl 2. Endometrium: wnl 3. Right Ovary: 1.4cm follicle 4. Left Ovary: 2.2cm simple appearing cyst 5. Bilateral Adnexa: wnl 6. Posterior cul-de-sac: mild free fluid IMPRESSION: 1. Small amount of free fluid. 2. Simple appearing cyst left ovary. Small follicle right ovary.
--- NOTE | 2018-09-05 09:35 | MM ---
Reason for exam: follow-up at short interval from prior study. Last mammogram was performed 6 months ago. History: Family history of breast cancer in maternal aunt at age 60. Physical Findings: Nurse Summary: 0.5-1cm nodule in the right breast at 11-1 o'clock (nurse kp). MG 3D Diag Mammo W/Cad MELANIE Bilateral CC and MLO view(s) were taken. Prior study comparison: March 08, 2018, right breast MG 3d diag mammo w/cad RT. August 02, 2017, right breast MG work up mamm w CAD RT. The breast tissue is heterogeneously dense. This may lower the sensitivity of mammography. There is no discrete abnormality including area of concern. These results were verbally communicated with the patient and result sheet given to the patient on 09/04/18. ASSESSMENT: Incomplete: need additional imaging evaluation, BI-RAD 0 RECOMMENDATION: Ultrasound of the right breast. Manage patient on a clinical basis.
--- NOTE | 2018-09-05 09:36 | USB ---
Reason for exam: additional evaluation requested from abnormal screening. History: Family history of breast cancer in maternal aunt at age 60. US Breast RT Right complete breast ultrasound includes all four quadrants, the retroareolar region and axilla. Finding demonstrates a 0.4 x 0.3 x 0.3cm oval, cystic lesion at 3 o'clock, a 0.4 x 0.4 x 0.2cm cystic cluster at 4 o'clock, a 0.6 x 0.8 x 0.4cm cystic lesion at 10 o'clock and a 0.4 x 0.4 x 0.2cm oval, cystic lesion at 11 o'clock. These results were verbally communicated with the patient and result sheet given to the patient on 09/04/18. ASSESSMENT: Benign, BI-RAD 2 RECOMMENDATION: Routine screening mammogram of both breasts in 1 year. Manage patient on a clinical basis.
== END | disposition home or self-care (01) ==
LOC: RADMAMWWP 13:28
PROVIDERS: ATTEND Obstetrics & Gynecology
DX: R92.8 Other abnormal and inconclusive findings on diagnostic imaging of breast (principal); N83.8 Other noninflammatory disorders of ovary, fallopian tube and broad ligament
CPT/HCPCS: 76856; 77062; 77066

== ENCOUNTER → 2020-09-05 | Outpatient (CLI) | payer MEDICAID ==
[2020-09-05 21:48] LABS: African American GFR (CKD) 122.1 (60.0-200.0); Albumin 4.6 g/dL (3.80-4.90); Albumin/Globulin Ratio 2.56 (1.60-3.17); Anion Gap 7.2 mmol/L (4.00-12.00); BUN/Creat Ratio 17.14 Ratio (12.00-20.00); Calcium 9.5 mg/dL (8.7-10.3); Carbon Dioxide 28.8 mmol/L (21.6-31.8); Globulin 1.8 g/dL (1.6-3.3); Non-African American GFR(CKD) 105.4 (60.0-200.0); Potassium 4.3 mmol/L (3.5-5.5); Total Bilirubin 0.4 mg/dL (0.2-1.2); Total Protein 6.4 g/dL (6.2-8.2)
[2020-09-06 00:43] LABS: HIV 2 AB Non-Reactive (Non-Reactive); HIV AB P24 Non-Reactive (Non-Reactive); HIV P24 AG Non-Reactive (Non-Reactive)
== END | disposition home or self-care (01) ==
LOC: LABWHC1 11:52
PROVIDERS: ATTEND Obstetrics & Gynecology
DX: Z11.3 Encounter for screening for infections with a predominantly sexual mode of transmission (principal); Z13.228 Encounter for screening for other metabolic disorders
CPT/HCPCS: 36415; 80053; 86780; 87390

== ENCOUNTER → 2020-11-13 | Outpatient (CLI) | payer MEDICAID ==
--- NOTE | 2020-11-14 12:06 | MM ---
Reason for exam: screening (asymptomatic). Last mammogram was performed 2 years and 2 months ago. History: Family history of breast cancer in maternal aunt at age 60. Physical Findings: A clinical breast exam by your physician is recommended on an annual basis and results should be correlated with mammographic findings. MG 3D Screening Mammo W/Cad Bilateral CC and MLO view(s) were taken. Prior study comparison: September 04, 2018, bilateral MG 3d diag mammo w/cad MELANIE. March 08, 2018, right breast MG 3d diag mammo w/cad RT. The breast tissue is heterogeneously dense. This may lower the sensitivity of mammography. There is chronic nodularity in the right breast laterally. No significant changes when compared with prior studies. ASSESSMENT: Benign, BI-RAD 2 RECOMMENDATION: Routine screening mammogram of both breasts in 1 year.
== END | disposition home or self-care (01) ==
LOC: RADMAMWWP 07:32
PROVIDERS: ATTEND Obstetrics & Gynecology
DX: Z12.31 Encounter for screening mammogram for malignant neoplasm of breast (principal)
CPT/HCPCS: 77063; 77067

== ENCOUNTER → 2020-12-16 | Outpatient (CLI) | payer MEDICAID ==
[2020-12-16 19:02] LABS: Basophils # (A) 0.04 X 10*3/uL (0.00-0.10); Basophils % (A) 0.5 %; Eosinophils # (A) 0.05 X 10*3/uL (0.04-0.35); Eosinophils % (A) 0.6 %; HCT 42.2 % (37.2-46.3); HGB 13.2 g/dL (12.0-15.0); Lymphocytes # (A) 1.51 X 10*3/uL (0.90-5.00); Lymphocytes % (A) 18.2 %; MCH 27.6 pg (27.0-32.0); MCHC 31.3 g/dL (32.0-37.0); MCV 88.3 fL (80.0-97.0); Monocytes # (A) 0.67 X 10*3/uL (0.20-1.00); Monocytes % (A) 8.1 %; Neutrophils # (A) 6.02 X 10*3/uL (1.80-7.70); Neutrophils % (A) 72.4 %; Platelet Count 321 X 10*3/uL (140-440); RBC 4.78 X 10*6/uL (4.10-5.20); RDW 15.1 % (11.5-14.5); WBC 8.31 X 10*3/uL (4.50-10.00)
== END | disposition home or self-care (01) ==
LOC: LABWHC1 13:20
PROVIDERS: ATTEND Obstetrics & Gynecology
DX: D64.9 Anemia, unspecified (principal)
CPT/HCPCS: 36415; 85025

== ENCOUNTER 2020-12-18 06:15 | Day surgery (SDC) | payer MEDICAID ==
[2020-12-16 11:53] VITALS: BMI 21.9
--- NOTE | 2020-12-17 15:08 | P.HPOB ---
History of Present Illness H&P Date: 12/17/20 Chief Complaint: Menorrhagia with irregular cycle, family planning This is a 45 y.o. female, 4, para 3, who presents for dilatation and curettage with hysteroscopy and Novasure endometrial ablation along with laparoscopic bilateral tubal ligation via fulgaration due to menorrhagia with irregular cycle and family planning. She has menses occuring every 21-31 days lasting 4-8 days with the 1st day very heavy. She also has intermittent right lower quadrant pain. Pelvic ultrasound showed uterus measuring 9.6 x 6.7 x 5.2 cm with small follicle cysts bilaterally. OB Hx: . History of 3 vaginal deliveries and 1 miscarriage. [employer] Hx: No history of STDs. Social Hx: . RN at [employer]. Review of Systems Constitutional: Denies chills, Denies fever Eyes: denies blurred vision, denies pain Ears, nose, mouth and throat: Denies headache, Denies sore throat Cardiovascular: Denies chest pain, Denies shortness of breath Respiratory: Denies cough Gastrointestinal: Reports constipation, Reports diarrhea, Denies abdominal pain, Denies nausea, Denies vomiting Genitourinary: Reports dysmenorrhea, Reports menorrhagia, Reports pelvic pain (RLQ intermittent) Menstruation: Reports period heavy Musculoskeletal: Denies myalgias Integumentary: Denies pruritus, Denies rash Neurological: Denies numbness, Denies weakness Psychiatric: Denies anxiety, Denies depression Past Medical History Past Medical History: GERD/Reflux Additional Past Medical History / Comment(s): ireegular menses,hx IBS, adrenal adenoma, psoriasis, dry eyes. History of Any Multi-Drug Resistant Organisms: None Reported Additional Past Surgical History / Comment(s): D&C, COLONOSCOPY Past Anesthesia/Blood Transfusion Reactions: Postoperative Nausea & Vomiting (PONV) Past Psychological History: No Psychological Hx Reported Smoking Status: Never smoker Past Alcohol Use History: Occasional Past Drug Use History: None Reported - Past Family History Father Family Medical History: Cancer Additional Family Medical History / Comment(s): THROAT AND LUNG CANCER Medications and Allergies Home Medications Medication Instructions Recorded Confirmed Type Clobetasol Propionate [Temovate] 1 applic TOPICAL DAILY PRN 08/19/16 12/16/20 History B Complex W-C No.20/Folic Acid 1 tab PO DAILY 09/30/17 12/16/20 History [Renal Caps Softgel] valACYclovir [Valtrex] 500 mg PO DAILY PRN 12/16/20 12/16/20 History Allergies Allergy/AdvReac Type Severity Reaction Status Date / Time Sulfa (Sulfonamide Allergy Rash/Hives Verified 12/16/20 11:27 Antibiotics) Exam Osteopathic Statement: *. No significant issues noted on an osteopathic structural exam other than those noted in the History and Physical/Consult. HEENT: within normal limits Heart: regular rate and rhythm Lungs: clear to auscultation bilaterally Abdomen: soft, non-tender Pelvic: uterus small, retroverted, non-tender, no adnexal masses or tenderness. Extremities: neg. Hina's Assessment and Plan (1) Menorrhagia with irregular cycle Current Visit: No Status: Acute Code(s): N92.1 - EXCESSIVE AND FREQUENT MENSTRUATION WITH IRREGULAR CYCLE SNOMED Code(s): 057526470 (2) Family planning Current Visit: No Status: Acute Code(s): Z30.09 - ENCOUNTER FOR OT GENERAL CNSL AND ADVICE ON CONTRACEPTION SNOMED Code(s): 359124269 Plan: Proceed with dilatation and curettage with hysteroscopy and Novasure endometrial ablation and laparoscopic bilateral tubal ligation via fulgaration. I have discussed the risks, benefits, and alternative therapies for the above- mentioned procedure and for both sedation/anesthesia as well as necessary blood products administration, if indicated, as they pertain to this patient. The patient has indicated her understanding and acceptance of the risks and procedures discussed.
[~2020-12-18 06:15] MED LIST changes: -LACTATED RINGERS 1,000 ML IV SCH; +Pre Op ABX Message 1 EACH MISC MISCELLANE ONE
[2020-12-18] MEDS ORDERED: ONDANSETRON 4 MG/2 ML VIAL ONE (06:48)
[2020-12-18] MEDS ORDERED: LACTATED RINGERS 1,000 ML IV ONE (06:56)
[2020-12-18] MEDS ORDERED: DEXAMETHASONE SOD PHOSPHATE 4 MG/ML 1 ML VIAL IV ONE (07:00)
[2020-12-18] MEDS ORDERED: MIDAZOLAM 2 MG/2 ML VIAL ONE (07:30)
[2020-12-18] MEDS ORDERED: PROPOFOL 10 MG/ML 20 ML VIAL IV ONE (07:30)
[2020-12-18] MEDS ORDERED: GLYCOPYRROLATE 0.2 MG/ML 2 ML VIAL ONE (07:30)
[2020-12-18] MEDS ORDERED: NEOSTIGMINE 1 MG/ML 10 ML VIAL ONE (07:30)
[2020-12-18] MEDS ORDERED: LIDOCAINE 1% INJ 10MG/ML (20 ML MDV) ONE (07:30)
[2020-12-18] MEDS ORDERED: ROCURONIUM 10 MG/ML (5 ML VIAL) IV ONE (07:30)
[2020-12-18] MEDS ORDERED: KETOROLAC 15 MG/ML 1 ML VIAL ONE (07:30)
[2020-12-18] MEDS ORDERED: fentaNYL (PF) 50 MCG/ML 2 ML AMP ONE (07:30)
[2020-12-18] MEDS ORDERED: BUPIVACAINE (PF) 0.25% 30 ML VIAL SQ ONE (07:39)
--- NOTE | 2020-12-18 08:37 | P.OP ---
Date of Procedure: 12/18/20 Preoperative Diagnosis: 1. Menorrhagia with irregular cycle. 2. Family-planning. Postoperative Diagnosis: Same plus endometriosis Procedure(s) Performed: Dilation and curettage with hysteroscopy and NovaSure endometrial ablation Laparoscopic bilateral tubal ligation via fulguration Anesthesia: ZOE Surgeon: Elisabet Diane Estimated Blood Loss (ml): 10 Pathology: other (Endometrial curettings) Condition: stable Disposition: same day Indications for Procedure: This is a 45 y.o. female, 4, para 3, who presents for dilatation and curettage with hysteroscopy and Novasure endometrial ablation along with laparoscopic bilateral tubal ligation via fulgaration due to menorrhagia with irregular cycle and family planning. She has menses occuring every 21-31 days lasting 4-8 days with the 1st day very heavy. She also has intermittent right lower quadrant pain. Pelvic ultrasound showed uterus measuring 9.6 x 6.7 x 5.2 cm with small follicle cysts bilaterally. Operative Findings: Uterus is retroverted and sounded to 9 cm. Cervix is sounded to 4 cm. Upon hysteroscopy, a relatively uniform endometrial contour was noted. Both tubal ostia were visualized. A minimal to moderate amount of endometrial curettings are obtained. On laparoscopy, liver edge and gallbladder appeared normal. Appendix is visualized and appears normal. There was a very small implants of endometriosis noted on the left sacral ligament. No other evidence of en dometriosis was noted. Description of Procedure: The patient is taken to the operating room. She is placed in the dorsal lithotomy position after general anesthesia was given. She is prepped and draped in the normal sterile fashion. Bladder is drained with a catheter and then removed. Pelvic exam is performed under anesthesia. Uterus is found to be retroverted with no adnexal masses. She is placed in slight Trendelenburg position. A right angle retractor is used to visualize the cervix. The anterior lip of the cervix is grasped with a single-tooth tenaculum. Cervix is sounded to 4 cm. Uterus is sounded to 9 cm. Cervix is gently dilated with Farmer dilators until a hysteroscope could be passed. Hysteroscopy is performed using normal saline. The above noted findings are noted. Next a polyp forceps is introduced. A minimal amount of tissue was obtained. Next medium-sized size sharp curette was placed. A minimal to moderate amount of endometrial cu rettings were obtained. Next NovaSure array was inserted into the endometrial cavity. Length was set at 5 cm and width was determined to be 0.2 cm. Next cavity assessment was completed and passed on the first try. Next NovaSure array was fired at 116 W for 84 seconds. Next the array was removed, inspected and then discarded. Next the hysteroscope was reinserted. Uniform charring was noted. Pictures were taken. Hysteroscope was removed. The kroner uterine manipulator was then inserted through the cervix and the balloon was inflated. The single-tooth tenaculum is removed speculum was removed gloves were changed and attention was turned to the abdomen. A small stab incision was made with a scalpel in the infraumbilical fold. A towel clip was placed above the umbilicus for retraction. A 5 mm disposable bladeless trocar was then inserted into the peritoneal cavity under direct visualization. Once inside, pneumoperitoneum was achieved with CO2 gas. The insert was removed and the camera was placed. Intraperitoneal placement was confirmed. No bleeding was noted. Next the patient was placed in Trendelenburg position. A small stab incision was made suprapubically and a 5 mm disposable bladeless trocar was inserted into the peritoneal cavity under direct visualization. Once inside pelvic contents were inspected. Next a bipolar Kleppinger instrument was placed through the inferior trocar and the midportion of each tube was brought away from other structures and completely fulgurated on approximate 2-3 cm segment of each tube. Excellent hemostasis was noted. Pictures were taken. There was noted to be a very small brown implant of endometriosis on the left uterosacral ligament. No other evidence of endometriosis was noted. Pneumoperitoneum was released after the inferior trocar was removed under direct visualization. The upper trocar was then removed. The skin incisions were then closed with 4-0 Vicryl suture in a subcuticular fashion. Incisions were then injected with quarter percent Marcaine. Approximately 7 mL were used. Next the kroner uterine manipulator was removed. Minimal bleeding was noted. All sponge and needle counts are correct. The patient is then taken to recovery room in stable condition.
[2020-12-18 08:57] VITALS: TEMP 98.1
[2020-12-18] MEDS ORDERED: SODIUM CHLORIDE 0.9% 1,000 ML IV ONE ×2 (09:23)
[2020-12-18 10:47] VITALS: BP 108/72; PULSE 84; RESP 18
== END 2020-12-18 10:52 | disposition home or self-care (01) ==
LOC: OR 06:15
PROVIDERS: ATTEND Obstetrics & Gynecology
DX: N92.0 Excessive and frequent menstruation with regular cycle (principal); Z30.2 Encounter for sterilization; N84.1 Polyp of cervix uteri; K21.9 Gastro-esophageal reflux disease without esophagitis; Z88.2 Allergy status to sulfonamides; Z79.899 Other long term (current) drug therapy
CPT/HCPCS: 81025; 88305; 58563; 58670; J2250; J1100; J2710; J2405; J2001; J3010; J1885; J2704

== ENCOUNTER → 2021-08-05 | Outpatient (CLI) | payer MEDICAID, OTHER | END | disposition home or self-care (01) | LOC: LABWHC1 10:19 | PROVIDERS: ATTEND Emergency Medicine | DX: Z20.822 Contact with and (suspected) exposure to COVID-19 (principal) | CPT/HCPCS: 87635 ==

== ENCOUNTER → 2021-08-06 | Outpatient (CLI) | payer MEDICAID, OTHER | END | disposition home or self-care (01) | LOC: LABWHC1 11:56 | PROVIDERS: ATTEND Emergency Medicine | DX: Z03.818 Encounter for observation for suspected exposure to other biological agents ruled out (principal); Z20.822 Contact with and (suspected) exposure to COVID-19 | CPT/HCPCS: 87635 ==

== ENCOUNTER → 2021-12-10 | Outpatient (CLI) | payer MEDICAID ==
--- NOTE | 2021-12-11 12:48 | MM ---
Reason for exam: screening (asymptomatic). Last mammogram was performed 1 year and 1 month ago. History: Family history of breast cancer in maternal aunt at age 60. Physical Findings: A clinical breast exam by your physician is recommended on an annual basis and results should be correlated with mammographic findings. MG 3D Screening Mammo W/Cad Bilateral CC and MLO view(s) were taken. Prior study comparison: November 13, 2020, bilateral MG 3d screening mammo w/cad. September 04, 2018, bilateral MG 3d diag mammo w/cad MELANIE. The breast tissue is heterogeneously dense. This may lower the sensitivity of mammography. There is no discrete abnormality. No significant changes when compared with prior studies. ASSESSMENT: Negative, BI-RAD 1 RECOMMENDATION: Routine screening mammogram of both breasts in 1 year.
== END | disposition home or self-care (01) ==
LOC: RADMAMWWP 06:58
PROVIDERS: ATTEND Obstetrics & Gynecology
DX: Z12.31 Encounter for screening mammogram for malignant neoplasm of breast (principal); Z80.3 Family history of malignant neoplasm of breast
CPT/HCPCS: 77063; 77067

== ENCOUNTER → 2023-09-21 | Outpatient (CLI) | payer MEDICAID ==
[2023-09-21 17:07] LABS: Chol/HDL Ratio 2.53 Ratio; Magnesium 1.9 mg/dL (1.5-2.4); T4, Free (Free Thyroxine) 1.21 ng/dL (0.80-1.80)
[2023-09-21 17:18] LABS: Basophils # (A) 0.04 X 10*3/uL (0.00-0.10); Basophils % (A) 0.7 %; Eosinophils # (A) 0.05 X 10*3/uL (0.04-0.35); Eosinophils % (A) 0.8 %; HCT 46.8 % (37.2-46.3); HGB 15.6 g/dL (12.0-15.0); Lymphocytes % (A) 21.3 %; MCH 30.3 pg (27.0-32.0); MCHC 33.3 g/dL (32.0-37.0); MCV 90.9 FL (80.0-97.0); Mean Platelet Volume 11.5 FL (9.5-12.2); Monocytes # (A) 0.45 X 10*3/uL (0.20-1.00); Monocytes % (A) 7.4 %; NRBC Per 100 WBC 0 X 10*3/uL (0.00-0.01); Neutrophils # (A) 4.23 X 10*3/uL (1.80-7.70); Neutrophils % (A) 69.3 %; Platelet Count 273 X 10*3/uL (140-440); RBC 5.15 X 10*6/uL (4.10-5.20)
[2023-09-21 17:35] LABS: ALT 18 U/L (8-44); AST 26 U/L (13-35); Albumin 4.5 g/dL (3.8-4.9); Albumin/Globulin Ratio 1.88 Ratio (1.60-3.17); Alkaline Phosphatase 72 U/L (41-126); BUN/Creat Ratio 11.38 Ratio (12.00-20.00); Blood Urea Nitrogen 9.1 mg/dL (9.0-27.0); Calcium 9.8 mg/dL (8.7-10.3); Chloride 101 mmol/L (96-109); Globulin 2.4 g/dL (1.6-3.3); Glucose 89 mg/dL (70-110); Potassium 4.2 mmol/L (3.5-5.5); Sodium 139 mmol/L (135-145); Total Bilirubin 0.4 mg/dL (0.3-1.2); Total Protein 6.9 g/dL (6.2-8.2)
== END | disposition home or self-care (01) ==
LOC: LABWHC1 10:53
PROVIDERS: ATTEND Family Medicine
DX: Z00.01 Encounter for general adult medical examination with abnormal findings (principal); R00.2 Palpitations; R53.83 Other fatigue
CPT/HCPCS: 36415; 80053; 80061; 82306; 82607; 83735; 84439; 84443; 84481; 85025

== ENCOUNTER → 2023-09-21 | Outpatient (CLI) | payer MEDICAID ==
--- NOTE | 2023-09-21 12:22 | CA ---
Transthoracic Echo Report Name: Sonya Freedman Age: 48 Gender: F : 1975 Exam Date: 09/21/2023 08:26 Exam Location: [place] [facility] Ht (in): 67 Wt (lb): 150 Ordering Physician: Umair Benito MD Attending/Referring Phys: [employer] Bianca Singh RDCS Procedure CPT: Indications: R9431 ABNORMAL ELECTROCARDIOGRAM Cardiac Hx: Technical Quality: Fair Contrast 1: Total Dose (mL): Contrast 2: Total Dose (mL): MEASUREMENTS (Male / Female) Normal Values 2D ECHO LV Diastolic Diameter PLAX 4.1 cm 4.2 - 5.9 / 3.9 - 5.3 cm LV Systolic Diameter PLAX 2.8 cm IVS Diastolic Thickness 1.1 cm 0.6 - 1.0 / 0.6 - 0.9 cm LVPW Diastolic Thickness 1.1 cm 0.6 - 1.0 / 0.6 - 0.9 cm LV Relative Wall Thickness 0.5 RV Internal Dim ED PLAX 3.7 cm LA Volume 27.9 cm??? 18 - 58 / 22 - 52 cm??? LA Volume Index 15.5 cm???/m??? 16 - 28 cm???/m??? M-MODE Aortic Root Diameter MM 2.4 cm LA Systolic Diameter MM 4.1 cm LA Ao Ratio MM 1.7 AV Cusp Separation MM 1.9 cm DOPPLER AV Peak Velocity 113.7 cm/s AV Peak Gradient 5.2 mmHg AV Mean Velocity 81.0 cm/s AV Mean Gradient 2.9 mmHg AV Velocity Time Integral 27.3 cm LVOT Peak Velocity 71.0 cm/s LVOT Peak Gradient 2.0 mmHg LVOT Velocity Time Integral 16.2 cm MV Area PHT 3.8 cm??? Mitral E Point Velocity 76.6 cm/s Mitral A Point Velocity 82.0 cm/s Mitral E to A Ratio 0.9 MV Deceleration Time 200.1 ms MV E' Velocity 7.8 cm/s Mitral E to MV E' Ratio 9.8 TR Peak Velocity 252.6 cm/s TR Peak Gradient 25.5 mmHg Right Ventricular Systolic Press 29.6 mmHg FINDINGS Left Ventricle Normal Left ventricular size, wall thickness, systolic function with no obvious regional wall motion abnormalities. Normal Left ventricular diastolic filling pattern. Left ventricular ejection fraction is estimated at 55-60 %. Right Ventricle Mild right ventricular dilatation. Right ventricular systolic pressure within normal limits. Right Atrium Normal right atrial size. Left Atrium Normal left atrial size. Mitral Valve Structurally normal mitral valve. No mitral stenosis. Trace to mild mitral regurgitation. Aortic Valve Trileaflet aortic valve. No aortic valve stenosis or regurgitation. Tricuspid Valve Structurally normal tricuspid valve. Mild tricuspid regurgitation. Pulmonic Valve Structurally normal pulmonic valve. Pericardium No pericardial effusion. Aorta Normal size aortic root and proximal ascending aorta. CONCLUSIONS Normal left ventricular ejection fraction 55-60% Trace to mild mitral regurgitation Mild tricuspid regurgitation Previewed by: Dr. Mukesh Bravo DO (Electronically Signed) Final Date: 21 September 2023 12:21
--- NOTE | 2023-09-21 12:41 | CA ---
Exercise Nuclear Stress Test Report Name: Sonya Freedman Exam Date: 09/21/2023 10:11 Exam Location: [place] [facility] Ht (in): 67 Wt (lb): 150 BSA: 1.79 Ordering Phys: Umair Benito MD Referring Phys: AILYN Technologist: Twan Bolanos Age: 48 Gender: F : 1975 Procedure CPT: Indications: R9431 ABNORMAL ELECTROCARDIOGRAM ICD-10 Codes: Patient History: Medications: Meds past 24 hrs: Pretest Chest Pain: STRESS TEST Tez Protocol Exercise Duration (min:sec): 13:[address] Depressions (mm): Angina Score: Arellano Score: Resting HR (bpm): 71 Peak HR (bpm): 169 Resting BP (mmHg): 123 / 81 Peak BP (mmHg): 185 / 64 MPHR: 173 Target HR: 147 % MPHR: 98 METS: 13.9 Total Dose: Peak Dose: Atropine: Double Product: 60481 BP Response: Stress Termination: TARGET HR REACHED/MAX EXERTION Stress Symptoms: NO SYMPTOMS Stress Summary: ECG ANALYSIS Resting ECG: Stress ECG: CONCLUSIONS Patient underwent exercise stress Cardiolite with a Tez protocol treadmill stress test. Patient exercised into Stage 4 for a total of 13 minutes reaching a total of 13.9 METS. Patient's maximum heart rate was 169 which represented 97% age- predicted maximum heart rate. Stress EKG findings: At baseline patient's EKG showed normal sinus rhythm, normal axis, no significant ST or T wave abnormalities. At peak exercise, EKG showed nondiagnostic minimal 0.[address] depressions in inferior and lateral leads. Conclusions: 1. Normal EKG response to exercise without evidence of inducible ischemia. 2. Excellent exercise capacity. 3. Nuclear portion to be reported separately Dr. Mukesh Bravo DO (Electronically Signed) Final Date: 21 September 2023 12:40
--- NOTE | 2023-09-21 12:50 | NM ---
EXAMINATION TYPE: NM stress cardiolite complete DATE OF EXAM: 09/21/2023 COMPARISON: NONE CLINICAL INDICATION: Female, 48 years old with history of R9431 ABNORMAL ELECTROCARDIOGRAM; TECHNIQUE: After the intravenous administration of 9.9 mCi Tc 99m Sestamibi - Rest images obtained 4 5 minutes post injection. The patient exercised using a FABBY protocol and 1 minute prior to peak e xercise was injected with 24.7 mCi Tc 99m Sestamibi - Stress images obtained 10 minutes post injectio n. FINDINGS: Targeted heart rate (147 BPM) was achieved during performance of the study (164 bpm achieved). Total exercise time 13 minutes. Review of stress and rest SPECT images demonstrates decreased perfusion along the mid to basal latera l wall on stress. Gated analysis shows limited augmentation of the lateral wall here. Estimated left ventricular ejection fraction of 71 %. TID is calculated at 0.7, within normal limits. IMPRESSION: Equivocal reversibility along the mid to basal lateral wall as findings are not corroborated on the p olar maps. Further clinical correlation recommended.
== END | disposition home or self-care (01) ==
LOC: RADNMMAIN 07:59
PROVIDERS: ATTEND Family Medicine
DX: I34.0 Nonrheumatic mitral (valve) insufficiency (principal); I36.1 Nonrheumatic tricuspid (valve) insufficiency; R94.31 Abnormal electrocardiogram [ECG] [EKG]
CPT/HCPCS: 93017; 93306; 78452; A9500

== ENCOUNTER → 2024-03-30 | Outpatient (CLI) | payer MEDICAID ==
--- NOTE | 2024-04-03 07:57 | CA ---
Stress Echo Report Sonya Freedman Age: 48 Gender: F : 1975 Exam Date: 03/30/2024 10:12 Exam Location: [facility] Ht (in): 67 Wt (lb): 148 Ordering Physician: MUSA Referring Physician: MUSA,, Software Designer: Melyssa Figueredo RDCS Technologist Procedure CPT: Indication: ICD-9 Codes: Rhythm: Patient History: DIFFICULTY IN BREATHING, PALPITATIONS Cardiac Medications: Medications in past 24 hours: Contrast: Stress Results Protocol: Tez Total dose(mL): Exercise Duration (min:sec): 12:[address] Depression (mm): 0 Angina Score: 0 Arellano Score: 12.6 METS: 12.9 Resting HR: 71 Resting BP: 119 / 73 Peak HR: 171 Peak BP: 166 / 77 Max Predicted HR: 173 99 % Max Predicted HR Target HR: 147 Double Product: [id number] Stress Summary: ORDERING PHYSICIAN REQUESTED STUDY WITH DEFINITY. PT EXPERIENCED ALLERGIC REACTION AFTER RECEIVING DEFINITY AND ATTENDING PHYSICIAN REQUESTED REMAINDER OF TEST TO BE COMPLETED WITHOUT CONTRAST AGENT BP Response: Reason for Termination: MAX EXERTION/TARGET HR Cardiac Symptoms: NO SYMPTOMS ECG Analysis Resting ECG: Normal sinus rhythm, normal ECG Stress ECG: No abnormal ST/T wave changes with exercise Arrhythmia: None Echo Analysis Resting Echo: Normal resting echocardiogram. Peak Echo Analysis: Normal wall thickening and motion MEASUREMENTS (Male/Female) Normal Values CONCLUSIONS Patient falls into low-risk group (DTS >= +5). This associates the patient with an annual CV mortality <= 0.5%. No ECG evidence of ischemia with exercise. Normal treadmill stress echocardiogram. Excellent exercise tolerance Dr. Arthur Ward MD (Electronically Signed) Final Date: 30 March 2024 12:08
== END | disposition home or self-care (01) ==
LOC: RADNMMAIN 08:55
PROVIDERS: ATTEND Internal Medicine Clinical Cardiac Electrophysiology
DX: R07.9 Chest pain, unspecified (principal); R94.39 Abnormal result of other cardiovascular function study; R06.00 Dyspnea, unspecified; R00.2 Palpitations
CPT/HCPCS: 93351

== ENCOUNTER → 2024-06-19 | Outpatient (CLI) | payer MEDICAID ==
--- NOTE | 2024-06-23 15:49 | MM ---
Reason for Exam: Screening (asymptomatic). Last mammogram was performed 2 year(s) and 6 month(s) ago. Patient History: Menarche at age 14. First Full-Term at age 25. Patient has history of breast feeding. Maternal aunt had breast cancer, age 60. Risk Values: Ursula 5 year model risk: 0.8%. NCI Lifetime model risk: 8.4%. Prior Study Comparison: 09/04/2018 Bilateral Diagnostic Mammogram, [facility]. 11/13/2020 Bilateral Screening Mammogram, [facility]. 12/10/2021 Bilateral Screening Mammogram, [facility]. Tissue Density: The breasts are heterogeneously dense, which may obscure small masses. Findings: Analyzed By CAD. The pattern is symmetrical. There is a new focal asymmetry within the mid right breast. Additional workup is recommended. Summation is within the differential. Left breast:No suspicious groups of microcalcifications, spiculated or lobular masses, architectural distortion or other secondary signs of malignancy are mammographically apparent. Overall Assessment: Incomplete: need additional imaging evaluation, BI-RAD 0 Management: Diagnostic Mammogram of the right breast. A negative mammogram report should not preclude additional follow up of suspicious palpable abnormalities. Patient should continue monthly self breast exam. A clinical breast exam by your physician is recommended on an annual basis and results should be correlated with mammographic findings. Note on Ursula scores and lifetime risk: 1. A Ursula score greater than 3% is considered moderate risk. If this is the case, consider specialist referral to assess eligibility for a risk reducing agent. 2. If overall lifetime risk for the development of breast cancer is 20% or higher, the patient may qualify for future screening with alternating mammogram and breast MRI. [facility], , 06/23/2024 3:47 PM. Electronically signed and approved by: Chava Trinidad D.O. Radiologis
== END | disposition home or self-care (01) ==
LOC: RADMAMWWP 11:14
PROVIDERS: ATTEND Obstetrics & Gynecology Obstetrics
DX: Z12.31 Encounter for screening mammogram for malignant neoplasm of breast (principal); R92.333 Mammographic heterogeneous density, bilateral breasts; Z80.3 Family history of malignant neoplasm of breast
CPT/HCPCS: 77063; 77067

== ENCOUNTER → 2024-06-26 | Outpatient (CLI) | payer MEDICAID ==
--- NOTE | 2024-07-03 12:55 | MM ---
Reason for Exam: Additional evaluation requested from abnormal screening. Last screening mammogram was performed less than 1 month ago. Patient History: Menarche at age 14. First Full-Term at age 25. Patient has history of breast feeding. Maternal aunt had breast cancer, age 60. Risk Values: Ursula 5 year model risk: 0.8%. NCI Lifetime model risk: 8.4%. Tissue Density: Right: The breasts are heterogeneously dense, which may obscure small masses. Findings: Analyzed By CAD. No persistent nodule or mass. Overall Assessment: Negative, BI-RAD 1 Management: Screening Mammogram of both breasts in 1 year. . Results were given to the patient verbally at the time of exam. Patient should continue monthly self-breast exams. A clinical breast exam by your physician is recommended on an annual basis. This exam should not preclude additional follow-up of suspicious palpable abnormalities. Note on Ursula scores and lifetime risk: 1. A Ursula score greater than 3% is considered moderate risk. If this is the case, consider specialist referral to assess eligibility for a risk reducing agent. 2. If overall lifetime risk for the development of breast cancer is 20% or higher, the patient may qualify for future screening with alternating mammogram and breast MRI. [facility], , 06/26/2024 2:33 PM. Electronically signed and approved by: Chad Moreira M.D. Radiologis
== END | disposition home or self-care (01) ==
LOC: RADMAMWWP 14:09
PROVIDERS: ATTEND Obstetrics & Gynecology Obstetrics
DX: R92.8 Other abnormal and inconclusive findings on diagnostic imaging of breast (principal); Z80.3 Family history of malignant neoplasm of breast; R92.331 Mammographic heterogeneous density, right breast
CPT/HCPCS: 77061; 77065

== ENCOUNTER → 2024-09-07 | Outpatient (CLI) | payer MEDICAID ==
[2024-09-07 11:01] LABS: ALT 13 U/L (8-44); AST 18 U/L (13-35)
[2024-09-07 11:19] LABS: Hepatitis B Surface Antigen Nonreactive (Nonreactive); Hepatitis C IgG Antibody Nonreactive (Nonreactive)
[2024-09-07 13:43] LABS: Basophils # (A) 0.03 X 10*3/uL (0.00-0.10); Basophils % (A) 0.5 %; Eosinophils # (A) 0.08 X 10*3/uL (0.04-0.35); Eosinophils % (A) 1.4 %; HCT 44.7 % (37.2-46.3); HGB 14.7 g/dL (12.0-15.0); Lymphocytes # (A) 1.41 X 10*3/uL (0.90-5.00); Lymphocytes % (A) 25.5 %; MCH 29.7 pg (27.0-32.0); MCHC 32.9 g/dL (32.0-37.0); MCV 90.3 FL (80.0-97.0); Mean Platelet Volume 10.9 FL (9.5-12.2); Monocytes # (A) 0.49 X 10*3/uL (0.20-1.00); Monocytes % (A) 8.9 %; NRBC Per 100 WBC 0 X 10*3/uL (0.00-0.01); Neutrophils # (A) 3.49 X 10*3/uL (1.80-7.70); Neutrophils % (A) 63.3 %; Platelet Count 269 X 10*3/uL (140-440); RBC 4.95 X 10*6/uL (4.10-5.20); RDW 12.9 % (11.5-14.5); WBC 5.52 X 10*3/uL (4.50-10.00)
== END | disposition home or self-care (01) ==
LOC: LABWHC1 07:50
DX: L40.0 Psoriasis vulgaris (principal); Z79.899 Other long term (current) drug therapy
CPT/HCPCS: 36415; 82565; 84450; 84460; 85025; 86480; 86704; 86706; 86803; 87340